=== PATIENT | male | born 1975 | race Caucasian/White ===

== ENCOUNTER 2019-07-12 17:36 | Emergency (ER) | payer OTHER ==
[~2019-07-12] VITALS: Ht 180.3 cm; Wt 78.0 kg
[2019-07-12 17:37] VITALS: BP 138/92
[2019-07-12] MEDS ORDERED: IBUPROFEN 800800 M1 PO (18:53)
== END 2019-07-12 19:05 | disposition home or self-care (01) ==
LOC: ER 17:36
DX: S61.011A Laceration without foreign body of right thumb without damage to nail, initial encounter (principal); Z88.0 Allergy status to penicillin; W26.8XXA Contact with other sharp object(s), not elsewhere classified, initial encounter; Y92.89 Other specified places as the place of occurrence of the external cause; Y99.0 Civilian activity done for income or pay; Y99.8 Other external cause status

== ENCOUNTER 2019-10-02 18:55 | Emergency (ER) | payer OTHER ==
[~2019-10-02] VITALS: Ht 180.3 cm; Wt 83.9 kg
[~2019-10-02 18:55] MED LIST: IBUPROFEN 800800 M1 PO
[2019-10-02 19:35] LABS: ABSOLUTE NEUTROPHILS 5.8 thou/uL (1.4-8.2); BASOPHILS 1.4 % (0.0-2.0); HEMATOCRIT 38.3 % (42.0-52.0); HEMOGLOBIN 12.8 gm/dL (14.0-18.0); LYMPHOCYTES 26.8 % (24.0-44.0); MCH 30.6 pg (26.0-34.0); MCHC 33.4 g/dL (28.0-37.0); MCV 91.4 fL (80.0-100.0); MONOCYTES 6.5 % (1.0-8.0); PLATELET COUNT 466 thou/uL (150-400); POLYS 62.3 % (36.0-66.0); RBC 4.19 mil/uL (4.50-6.00); RDW 12.9 % (10.5-14.5); WBC 9.2 thou/uL (4.0-11.0)
[2019-10-02 19:38] LABS: URINE BILIRUBIN NEGATIVE (Negative); URINE BLOOD NEGATIVE (Negative); URINE CLARITY CLEAR; URINE COLOR YELLOW; URINE GLUCOSE-RANDOM* NEGATIVE (Negative); URINE KETONES NEGATIVE (Negative); URINE LEUKOCYTES-REFLEX NEGATIVE (Negative); URINE NITRITE-REFLEX NEGATIVE (Negative); URINE PROTEIN (DIPSTICK) NEGATIVE (Negative); URINE SPECIFIC GRAVITY >= 1.030 (1.005-1.035); URINE UROBILINOGEN 0.2 E.U./dl (0.2-1.0)
[2019-10-02 19:42] LABS: CREATININE 1.2 mg/dL (0.7-1.3); POTASSIUM 4.1 mmol/L (3.5-5.1)
[2019-10-02 19:45] LABS: URIC ACID* 6.9 mg/dL (2.6-7.2)
[2019-10-02] MEDS ORDERED: NORCO 5-325 TA1 EAC1 PO (20:40)
[2019-10-02 20:58] VITALS: BP 147/92
== END 2019-10-02 21:04 | disposition home or self-care (01) ==
LOC: ER 18:55
PROVIDERS: Emergency Medicine Emergency Medical Services
DX: S82.891A Other fracture of right lower leg, initial encounter for closed fracture (principal); Z88.0 Allergy status to penicillin; W22.8XXA Striking against or struck by other objects, initial encounter; Y93.84 Activity, sleeping; Y92.89 Other specified places as the place of occurrence of the external cause; Y99.8 Other external cause status

== ENCOUNTER 2020-06-25 18:38 | Emergency (ER) | payer OTHER ==
[~2020-06-25] VITALS: Ht 180.3 cm; Wt 90.7 kg
[~2020-06-25 18:38] MED LIST changes: +NORCO 5-325 TA1 EAC1 PO
[2020-06-25 18:40] VITALS: BP 150/98
[2020-06-25] MEDS ORDERED: ACYCLOVIR 800800 MG PO (19:24)
[2020-06-25] MEDS ORDERED: NORCO 5-325 TA1 EAC2 PO (19:24)
== END 2020-06-25 20:00 | disposition home or self-care (01) ==
LOC: ER 18:38
DX: B02.9 Zoster without complications (principal); Z79.899 Other long term (current) drug therapy; Z88.0 Allergy status to penicillin